=== PATIENT | male | born 1985 | race Caucasian/White ===

== ENCOUNTER 2017-11-25 18:37 | Emergency (ER) | payer MEDICAID ==
[2017-11-25] MEDS ORDERED: Acetaminophen/HYDROcodone 325-5 MG Tab PO ONE (18:38)
[2017-11-25 18:44] VITALS: BP 142/85
[2017-11-25] MEDS ORDERED: Acetaminophen/oxyCODONE 325-5 MG Tab PO ONE (18:54)
[2017-11-25] MEDS ORDERED: Ketorolac 60 MG/2 ML SDV IM ONE (18:55)
--- NOTE | 2017-11-25 19:03 | EDM.PDOC ---
ED HPI GENERAL MEDICAL PROBLEM - General Chief Complaint: Lower Extremity Injury/Pain Stated Complaint: right foot pain Time Seen by Provider: 11/25/17 18:43 Source of Information: Reports: Patient History Limitations: Reports: No Limitations - History of Present Illness INITIAL COMMENTS - FREE TEXT/NARRATIVE: This patient is a 32 year old male that presents to the ER. Patient reports that at about 2pm today he got up and stood down on his right foot wrong. Patient reports having pain now to the top of the right foot. Patient reports that it hurts constantly, worse with standing, walking, or moving of the foot. Patient reports he has had several injuries to this right foot previously in the past. Patient denies any other injuries. At foot no redness, heat, swelling , no evidence of gout or septic joint. No fever. Reports injury. Stable. Onset: Today Onset Date: 11/25/17 Onset Time: 14:00 Location: Reports: Lower Extremity, Right Quality: Reports: Ache, Sharp Severity: Moderate Worsens with: Reports: Movement Associated Symptoms: Reports: No Other Symptoms. Denies: Confusion, Chest Pain , Cough, cough w sputum, Diaphoresis, Fever/Chills, Headaches, Loss of Appetite , Malaise, Nausea/Vomiting, Rash, Seizure, Shortness of Breath, Syncope, Weakness Right Feet Pain Score (Numeric/FACES): 10 - Related Data Allergies Allergy/AdvReac Type Severity Reaction Status Date / Time No Known Allergies Allergy Verified 11/25/17 18:45 Home Meds: Home Meds Cyclobenzaprine [Flexeril] 10 mg PO BID 12/17/13 [History] Meloxicam [Mobic] 7.5 mg PO DAILY 02/25/15 [History] traMADol HCl [Tramadol HCl] 50 mg PO Q6H PRN 11/25/17 [History] Past Medical History - Past Health History Medical/Surgical History: Denies Medical/Surgical History Other HEENT History: deaf in his left ear, wisdom teeth removal Other Musculoskeletal History: recent foot injury Social & Family History - Tobacco Use Smoking Status *Q: Current Every Day Smoker Years of Tobacco use: 11 Packs/Tins Daily: 1 Used Tobacco, but Quit: No Second Hand Smoke Exposure: Yes - Alcohol Use Days Per Week of Alcohol Use: 0 - Recreational Drug Use Recreational Drug Use: No Review of Systems - Review of Systems Review Of Systems: See Below Constitutional: Reports: No Symptoms Eyes: Reports: No Symptoms Ears: Reports: No Symptoms Nose: Reports: No Symptoms Mouth/Throat: Reports: No Symptoms Respiratory: Reports: No Symptoms Cardiovascular: Reports: No Symptoms GI/Abdominal: Reports: No Symptoms Genitourinary: Reports: No Symptoms Musculoskeletal: Reports: Foot Pain (right) Skin: Reports: No Symptoms Neurological: Reports: No Symptoms Psychiatric: Reports: No Symptoms ED EXAM, GENERAL - Physical Exam Exam: See Below Exam Limited By: No Limitations General Appearance: Alert, WD/WN, No Apparent Distress, Anxious Eye Exam: Bilateral Eye: Normal Inspection, PERRL Ears: Normal External Exam, Normal Canal, Hearing Grossly Normal, Normal TMs Ear Exam: Bilateral Ear: Auricle Normal, Canal Normal, TM normal Nose: Normal Inspection, Normal Mucosa, No Blood Throat/Mouth: Normal Inspection, Normal Lips, Normal Teeth, Normal Gums, Normal Oropharynx, Normal Voice, No Airway Compromise Head: Atraumatic, Normocephalic Neck: Normal Inspection, Supple, Non-Tender, Full Range of Motion Respiratory/Chest: No Respiratory Distress, Lungs Clear, Normal Breath Sounds, No Accessory Muscle Use Cardiovascular: Normal Peripheral Pulses, Regular Rate, Rhythm, No Edema, No Gallop, No JVD, No Murmur, No Rub Peripheral Pulses: 2+: Posterior Tibial (L), Posterior Tibial (R), Dorsalis Pedis (L), Dorsalis Pedis (R) Back Exam: Normal Inspection Extremities: Normal Range of Motion, No Pedal Edema, Normal Capillary Refill, Other (Right foot pain, tenderness top of foot. Patient pain worse with extension of the foot, pain improves with flexion of the foot. ROM intact, wuth with pain. Pulses +2, cap refill <2 sec, sensory/motor function intact. Neurovascular intact. ) Neurological: Alert, Oriented Psychiatric: Normal Affect, Normal Mood Skin Exam: Warm, Dry, Intact, Normal Color, No Rash Lymphatic: No Adenopathy Course - Vital Signs Last Recorded V/S: Last Vital Signs Temp 98.2 F 11/25/17 18:39 Pulse 74 11/25/17 18:39 Resp 16 11/25/17 18:39 BP 142/85 H 11/25/17 18:39 Pulse Ox 99 11/25/17 18:39 - Orders/Labs/Meds Orders: Active Orders 24 hr Category Date Time Status Foot Comp Min 3V Rt [CR] Stat Exams 11/25/17 18:55 Taken Meds: Medications Discontinued Medications Generic Name Dose Route Start Last Admin Trade Name Jia PRN Reason Stop Dose Admin Hydrocodone Bitart/Acetaminophen 3 packet 11/25/17 19:47 Take Home: Acetaminophen/Hydrocod, 2 Tab Pack PO 11/25/17 19:48 ONETIME ONE Ketorolac Tromethamine 60 mg 11/25/17 18:55 11/25/17 19:05 Toradol IM 11/25/17 18:56 60 mg ONETIME ONE Administration Oxycodone/Acetaminophen 1 tab 11/25/17 18:54 11/25/17 19:03 Percocet 325-5 Mg PO 11/25/17 18:55 1 tab ONETIME ONE Administration - Radiology Interpretation Free Text/Narrative:: Right foot: No acute fx, dislocation, no soft tissue swelling. - Re-Assessments/Exams Free Text/Narrative Re-Assessment/Exam: 11/25/17 19:47 Patient placed in boot and crutches. Patient reports foot boot and pain medication made his foot pain much better. Departure - Departure Time of Disposition: 19:47 Disposition: Home, Self-Care 01 Condition: Good Clinical Impression: Foot sprain Qualifiers: Encounter type: initial encounter Laterality: right Qualified Code(s): S93.601A - Unspecified sprain of right foot, initial encounter - Discharge Information Instructions: Crutch Use, Adult, [id number], Foot Sprain Referrals: Cl Machuca MD [Primary Care Provider] - Forms: ED Department Discharge Additional Instructions: Followup with your primary care provider Return to the ER for worsening of condition or any emergent concerns Rest Ice Elevate Crutches No weight bearing until pain has resolved Foot boot as needed Alden 5/325mg 1-2 pills every 4-6 hours as needed for pain #12 no refill # take home. - My Orders Last 24 Hours: My Active Orders 11/25/17 18:55 Foot Comp Min 3V Rt [CR] Stat - Assessment/Plan Last 24 Hours: My Active Orders 11/25/17 18:55 Foot Comp Min 3V Rt [CR] Stat Plan: PLEASE SEE RN NOTE FOR PFSH.
[2017-11-25] MEDS ORDERED: Take Home: Acetaminophen/HYDROcodone 325-5 MG, 2 Tab Pack PO ONE (19:47)
== END 2017-11-25 20:01 | disposition home or self-care (01) ==
LOC: CC.ED 18:37
DX: S93.601A Unspecified sprain of right foot, initial encounter (principal); F17.210 Nicotine dependence, cigarettes, uncomplicated
CPT/HCPCS: 73630-RT; 96372; 99283; A9270-GY; J1885

== ENCOUNTER 2024-01-11 10:49 | Day surgery (SDC) | payer MEDICAID ==
[2024-01-11] MEDS: Lactated Ringers 1,000 ML IV SCH (11:18)
[2024-01-11] MEDS ORDERED: Ketamine 200 MG/20 ML MDV ONE (11:52)
[2024-01-11] MEDS ORDERED: fentaNYL 50 MCG/ML SDV ONE (11:52)
[2024-01-11] MEDS ORDERED: Propofol 200 MG/20 ML SDV ONE (11:52)
[2024-01-11] MEDS ORDERED: Midazolam 1 MG/ML 2 ML SDV ONE (11:52)
[2024-01-11] MEDS: Lidocaine 1% 5 ML VIAL INJECT ONE (12:04)
[2024-01-11 12:58] VITALS: BP 138/84; PULSE 77
== END 2024-01-11 13:00 | disposition home or self-care (01) ==
LOC: CC.SDS 10:49
PROVIDERS: ATTEND Family Medicine
DX: B07.9 Viral wart, unspecified (principal)
CPT/HCPCS: 00160; 30110; J2250; J2704; J3010; J7120; J3490

== ENCOUNTER 2024-02-28 13:37 | Emergency (ER) | payer MEDICAID ==
[2024-02-28 13:53] LABS: BASOPHILS ABSOLUTE AUTO 0.06 10^3/uL (0.00-0.50); BASOPHILS PERCENT AUTO 0.6 % (0-1); EOSINOPHILS ABSOLUTE AUTO 0.11 10^3/uL (0.00-1.50); HEMATOCRIT 47.9 % (42.0-52.0); HEMOGLOBIN 16.3 g/dL (14.0-18.0); IMMATURE GRAN ABSOLUTE AUTO 0.01 10^3/uL (0.00-0.49); IMMATURE GRAN PERCENT AUTO 0.1 % (0.0-4.9); LYMPHOCYTES ABSOLUTE AUTO 3.08 10^3/uL (0.60-5.00); LYMPHOCYTES PERCENT AUTO 28.3 % (24-44); MEAN CORPUSCULAR HEMOGLOBIN 28.7 pg (27.0-32.0); MEAN CORPUSCULAR VOLUME 84.3 fL (83.0-97.0); MONOCYTES ABSOLUTE AUTO 0.96 10^3/uL (0.00-1.50); MONOCYTES PERCENT AUTO 8.8 % (0-10); NEUTROPHILS ABSOLUTE AUTO 6.68 x10^3/uL (1.80-8.00); NEUTROPHILS PERCENT AUTO 61.2 % (41-71); PLATELET COUNT,PLT 282 10^3/uL (150-400); RED BLOOD CELL COUNT 5.68 x10^6/uL (4.50-6.00); WHITE BLOOD CELL COUNT,WBC 10.9 10^3/uL (4.0-11.0)
[2024-02-28] MEDS: Aspirin 81 MG Tab.Chew PO ONE (14:01)
[2024-02-28 14:09] LABS: ALBUMIN 3.8 g/dL (3.4-5.0); BILIRUBIN TOTAL 0.6 mg/dL (0.0-1.0); EST CRCL DRUG DOSING (CG) 109.93 mL/min; MAGNESIUM 2.1 mg/dL (1.8-2.4); POTASSIUM,K 3.5 mEq/L (3.5-5.0); PROTEIN TOTAL,TP 8.5 g/dL (6.4-8.2)
[2024-02-28 14:57] VITALS: BP 147/109; PULSE 97
== END 2024-02-28 14:35 | disposition home or self-care (01) ==
LOC: CC.ED 13:37
DX: R07.89 Other chest pain (principal); K04.7 Periapical abscess without sinus; K02.9 Dental caries, unspecified; Z79.899 Other long term (current) drug therapy
CPT/HCPCS: 36415; 71046; 80053; 83735; 84484; 85025; 87635; 93005; 99285; A9270; 93010; 99284; U0002

== ENCOUNTER 2024-05-05 08:14 | Emergency (ER) | payer OTHER, MEDICAID ==
[2024-05-05 08:43] VITALS: PULSE 77
[2024-05-05 08:43] LABS: BASOPHILS ABSOLUTE AUTO 0.06 10^3/uL (0.00-0.50); BASOPHILS PERCENT AUTO 0.4 % (0-1); EOSINOPHILS ABSOLUTE AUTO 0.09 10^3/uL (0.00-1.50); EOSINOPHILS PERCENT AUTO 0.6 % (0-6); HEMATOCRIT 43.6 % (42.0-52.0); HEMOGLOBIN 14.7 g/dL (14.0-18.0); IMMATURE GRAN ABSOLUTE AUTO 0.04 10^3/uL (0.00-0.49); IMMATURE GRAN PERCENT AUTO 0.2 % (0.0-4.9); LYMPHOCYTES ABSOLUTE AUTO 2.57 10^3/uL (0.60-5.00); LYMPHOCYTES PERCENT AUTO 15.8 % (24-44); MEAN CORPUSCULAR HEMOGLOBIN 28.8 pg (27.0-32.0); MEAN CORPUSCULAR HGB CONC 33.7 g/dL (32.0-36.0); MEAN CORPUSCULAR VOLUME 85.3 fL (83.0-97.0); MONOCYTES PERCENT AUTO 5.5 % (0-10); NEUTROPHILS ABSOLUTE AUTO 12.59 x10^3/uL (1.80-8.00); NEUTROPHILS PERCENT AUTO 77.5 % (41-71); PLATELET COUNT,PLT 333 10^3/uL (150-400); RED BLOOD CELL COUNT 5.11 x10^6/uL (4.50-6.00); WHITE BLOOD CELL COUNT,WBC 16.3 10^3/uL (4.0-11.0)
[2024-05-05 08:52] LABS: ALANINE AMINOTRANSFERASE,ALT 42 U/L (12-78); ALBUMIN 3.7 g/dL (3.4-5.0); ALKALINE PHOSPHATASE 81 U/L (46-116); ASPARTATE AMNIOTRANSFERASE,AST 27 U/L (15-37); BILIRUBIN TOTAL 0.6 mg/dL (0.0-1.0); BLOOD UREA NITROGEN,BUN 14 mg/dL (7-18); CALCIUM 9.1 mg/dL (8.4-10.1); CARBON DIOXIDE,CO2 30 mmol/L (21-32); CHLORIDE,CL 102 mEq/L (98-106); CREATININE 1.2 mg/dL (0.7-1.3); EST CRCL DRUG DOSING (CG) 91.61 mL/min; GLUCOSE RANDOM 101 mg/dL (75-99); POTASSIUM,K 3.2 mEq/L (3.5-5.0); PROTEIN TOTAL,TP 7.5 g/dL (6.4-8.2); SODIUM,NA 142 mEq/L (136-145)
[2024-05-05 08:57] LABS: C-REACTIVE PROTEIN < 0.50 mg/dL (<=0.50); ESTIMATED GFR 79 mL/min (>=60); ETHANOL BLOOD MEDICAL < 3 mg/dL (0-3)
[2024-05-05] MEDS: Sodium Chloride 0.9% 1,000 ML IV ONE (09:14)
[2024-05-05] MEDS: Bacitracin Oint 28.35 GM Tube TOP ONE (09:38)
[2024-05-05] MEDS: Lidocaine 1% 5 ML VIAL INJECT ONE (09:38)
[2024-05-05] MEDS: Diphtheria,Pertussis(Acell),Tetanus Vaccine 0.5 ML Syringe IM ONE (10:17)
[2024-05-05] MEDS: Potassium Chloride 20 MEQ Tab.ER PO ONE (10:23)
[2024-05-05 11:18] LABS: APPEARANCE,URINE CLEAR (CLEAR); BILIRUBIN,URINE NEGATIVE (NEGATIVE); COLOR,URINE YELLOW (YELLOW); GLUCOSE,URINE NEGATIVE (NEGATIVE); KETONES,URINE NEGATIVE (NEGATIVE); LEUKOCYTE ESTERASE,URINE NEGATIVE (NEGATIVE); NITRITE,URINE NEGATIVE (NEGATIVE); OCCULT BLOOD,URINE MODERATE (NEGATIVE); PROTEIN,URINE NEGATIVE (NEGATIVE); UROBILINOGEN,URINE 0.2 EU/dL (0.2-1.0)
[2024-05-05 11:23] VITALS: BP 152/101
[2024-05-05 11:23] LABS: AMPHETAMINES,URINE POSITIVE (NEGATIVE); BARBITURATES,URINE NEGATIVE (NEGATIVE); BENZODIAZEPINE,URINE NEGATIVE (NEGATIVE); MDMA (ECSTASY), URINE POSITIVE (NEGATIVE); METHADONE,URINE NEGATIVE (NEGATIVE); METHAMPHETAMINES,URINE POSITIVE (NEGATIVE); OPIATES,URINE NEGATIVE (NEGATIVE); OXYCODONE,URINE NEGATIVE (NEGATIVE); PHENCYCLIDINE,URINE NEGATIVE (NEGATIVE); TCA,URINE NEGATIVE (NEGATIVE)
[2024-05-05 11:27] LABS: BACTERIA,URINE NOT SEEN /HPF (NOT SEEN); MUCUS,URINE FEW /HPF (NOT SEEN); SQUAMOUS EPITHELIAL CELLS,UR NOT SEEN /HPF (NOT SEEN); WBC,URINE NOT SEEN /HPF (0-5)
== END 2024-05-05 11:28 | disposition home or self-care (01) ==
LOC: CC.ED 08:14 → MERGE 08:14 → CC.ED 11:28
DX: S91.312A Laceration without foreign body, left foot, initial encounter (principal); S90.512A Abrasion, left ankle, initial encounter; S80.212A Abrasion, left knee, initial encounter; S80.811A Abrasion, right lower leg, initial encounter; M25.512 Pain in left shoulder; V48.5XXA Car driver injured in noncollision transport accident in traffic accident, initial encounter
CPT/HCPCS: 12002; 36415; 73030-LT; 73610-LT; 80053; 80305-QW; 80307; 81001; 83735; 85025; 86140; 90471; 90715; 93005; 93010; 99284; 99284-25; A9270-GY; J3490; J7030

== ENCOUNTER 2025-03-11 10:39 | Emergency (ER) | payer SELFPAY ==
[2025-03-11 11:03] LABS: BASOPHILS ABSOLUTE AUTO 0.02 10^3/uL (0.00-0.50); BASOPHILS PERCENT AUTO 0.1 % (0-1); EOSINOPHILS ABSOLUTE AUTO 0.15 10^3/uL (0.00-1.50); HEMATOCRIT 46.1 % (42.0-52.0); HEMOGLOBIN 15.9 g/dL (14.0-18.0); IMMATURE GRAN ABSOLUTE AUTO 0.02 10^3/uL (0.00-0.49); IMMATURE GRAN PERCENT AUTO 0.1 % (0.0-4.9); LYMPHOCYTES ABSOLUTE AUTO 2.19 10^3/uL (0.60-5.00); MEAN CORPUSCULAR HEMOGLOBIN 28.5 pg (27.0-32.0); MEAN CORPUSCULAR HGB CONC 34.5 g/dL (32.0-36.0); MEAN CORPUSCULAR VOLUME 82.8 fL (83.0-97.0); MONOCYTES ABSOLUTE AUTO 0.77 10^3/uL (0.00-1.50); MONOCYTES PERCENT AUTO 5.3 % (0-10); NEUTROPHILS ABSOLUTE AUTO 11.44 x10^3/uL (1.80-8.00); NEUTROPHILS PERCENT AUTO 78.5 % (41-71); PLATELET COUNT,PLT 347 10^3/uL (150-400); RED BLOOD CELL COUNT 5.57 x10^6/uL (4.50-6.00); WHITE BLOOD CELL COUNT,WBC 14.6 10^3/uL (4.0-11.0)
[2025-03-11] MEDS: Ondansetron 4 MG/2 ML SDV IVPUSH STA (11:13)
[2025-03-11] MEDS: Sodium Chloride 0.9% 1,000 ML IV ONE (11:13)
[2025-03-11 11:25] LABS: ALANINE AMINOTRANSFERASE,ALT 33 U/L (12-78); ALBUMIN 4.2 g/dL (3.4-5.0); ALKALINE PHOSPHATASE 95 U/L (46-116); ASPARTATE AMNIOTRANSFERASE,AST 14 U/L (15-37); BILIRUBIN TOTAL 0.8 mg/dL (0.0-1.0); BLOOD UREA NITROGEN,BUN 11 mg/dL (7-18); C-REACTIVE PROTEIN 1.93 mg/dL (<=0.50); CALCIUM 9.8 mg/dL (8.4-10.1); CARBON DIOXIDE,CO2 24 mmol/L (21-32); CHLORIDE,CL 100 mEq/L (98-106); GLUCOSE RANDOM 125 mg/dL (75-99); LIPASE 110 U/L (16-77); POTASSIUM,K 3.7 mEq/L (3.5-5.0); PROTEIN TOTAL,TP 8.5 g/dL (6.4-8.2); SODIUM,NA 137 mEq/L (136-145)
[2025-03-11 11:28] LABS: ESTIMATED GFR 98 mL/min (>=60)
[2025-03-11] MEDS: Ketorolac 30 MG/ML SDV IVPUSH ONE (11:36)
[2025-03-11] MEDS: Iopamidol 755 Mg/ML 100 ML Bottle IVPUSH ONE (11:43)
[2025-03-11 15:05] VITALS: BP 161/76; PULSE 60
== END 2025-03-11 14:58 | disposition home or self-care (01) ==
LOC: CC.ED 10:39
DX: K80.20 Calculus of gallbladder without cholecystitis without obstruction (principal); I10 Essential (primary) hypertension; Z79.899 Other long term (current) drug therapy
CPT/HCPCS: 36415; 74177; 80053; 83690; 85025; 86140; 96361; 96374; 96375; 99284; 99284-25; J1885; J2405; J7030; Q9967